=== PATIENT | male | born 1960 | race Caucasian/White ===

== ENCOUNTER 2020-05-01 11:43 | Inpatient (IN) ==
[2020-05-01 13:19] LABS: Basophils # (auto) 0.01 K/uL (0-0.2); Basophils % (auto) 0.2 %; Eosinophils # (auto) 0.03 K/uL (0-0.5); Eosinophils % (auto) 0.5 %; Hemoglobin 12.7 g/dL (14.0-18.0); Immature Granulocytes # (auto) 0.04 K/uL (0.00-0.02); Immature Granulocytes % (auto) 0.7 %; Lymphocytes % (auto) 12.4 %; Mean Corpuscular Hemoglobin 31.7 pg (25-34); Mean Corpuscular Hgb Conc 35.3 g/dL (32-36); Mean Corpuscular Volume 89.8 fL (80-100); Mean Platelet Volume 8.6 fL (7.4-10.4); Monocytes # (auto) 0.23 K/uL (0.11-0.59); Monocytes % (auto) 4.1 %; Neutrophils # (auto) 4.65 K/uL (1.4-6.5); Neutrophils % (auto) 82.1 %; Platelet Count 189 K/uL (130-400); RDW Coefficient of Variation 13.5 % (11.5-14.5); RDW Standard Deviation 43.7 fL (36.4-46.3); Red Blood Count 4.01 M/uL (4.7-6.1); White Blood Count 5.66 K/uL (4.8-10.8)
[2020-05-01 13:30] LABS: Partial Thromboplastin Ratio 0.8; Partial Thromboplastin Time 23.1 Seconds (21.0-31.0); Prothrombin Time 10.9 Seconds (9.0-12.0)
[2020-05-01 13:37] LABS: Albumin Level 3.4 gm/dl (3.4-5.0); Aspartate Aminotransferase 25 U/L (15-37); Blood Urea Nitrogen 21 mg/dl (7-18); Calcium 9.1 mg/dl (8.5-10.1); Carbon Dioxide 27 mmol/L (21-32); Chloride 104 mmol/L (98-107); Creatinine Clr Calc Pharmacy 80.7 ml/min; Est GFR (African American) 109.2; Est GFR (Non-African American) 94.3; Glucose 111 mg/dl (70-99); Magnesium 2.1 mg/dl (1.8-2.4); Potassium 3.4 mmol/L (3.5-5.1); Sodium 137 mmol/L (136-145)
[2020-05-01 13:42] LABS: Alanine Aminotransferase 25 U/L (12-78); Albumin Globulin Ratio 0.8 (0.9-2); Alkaline Phosphatase 82 U/L (45-117); Bilirubin,Total 0.6 mg/dl (0.2-1); Globulin 4.3 gm/dl (2.5-4.0); NT Pro B Type Natriuretic Pept 21 pg/ml (0-900); Total Protein 7.7 gm/dl (6.4-8.2); Troponin I < 0.015 ng/ml (0-0.045)
[2020-05-01] MEDS ORDERED: OPTIRAY 320 125ml IV ONE (13:58)
--- NOTE | 2020-05-01 14:26 | CT Scan Report ---
CHEST CTA for PULMONARY ARTERIES CT DOSE: 246.65 mGy.cm HISTORY: R posterior rib pain - s/p chemo/rad esoph CA TECHNIQUE: Multiaxial CT images of the chest were performed following the intravenous administration of contrast to evaluate the pulmonary arteries. Maximal intensity projection images were also obtaine d. A dose lowering technique was utilized adhering to the principles of ALARA. COMPARISON STUDY: PET scan 02/20/2020. FINDINGS: Normal caliber thoracic aorta with no evidence for dissection. Large pulmonary embolus seen within the distal left main pulmonary artery and extending into the left lower lobe pulmonary arteri es. Stable mild enlargement of the right ventricle. The main pulmonary artery is normal in diameter. A few prominent AP window lymph nodes, unchanged. Mild thickening of the esophagus. Limited views of the upper abdomen demonstrate normal liver and spleen. The adrenal glands unremarkable. No suspicious lytic or blastic osseous lesions. No pneumothorax. The central airways are patent. Groundglass and c onsolidative airspace opacities within the base of the left lower lobe. This favors a pulmonary infar ct. A pneumonia could also have a similar appearance. Patchy consolidative airspace opacities are als o seen within the base of the right lower lobe posteriorly. IMPRESSION: 1. Extensive left-sided pulmonary emboli. 2. Left lower lobe consolidative and groundglass airspace opacities. This favors a pulmonary infarct. There are also patchy airspace opacities within the base of the right lower lobe posteriorly. This c ould represent an additional pulmonary infarct, pneumonia, or atelectasis. 3. Diffuse esophageal wall thickening most pronounced within the distal esophagus. This is similar to the prior study and may represent post post radiation changes or neoplastic change. ACT 112: Negative or not required by law. Electronically signed by: Israel Anderson M.D. 05/01/2020 2:25 PM
[2020-05-01] MEDS ORDERED: LEVOFLOXACIN/D5W 750 MG/150 ML BAG IV STA (14:50)
[2020-05-01] MEDS ORDERED: HEPARIN SODIUM/DEXTROSE 25,000 UNITS/500 ML BAG IV SCH (15:00)
--- NOTE | 2020-05-01 15:04 | Emergency Department Note ---
History of Present Illness General Chief complaint: Back Injury/Pain Stated complaint: PAIN IN LOWER BACK Time Seen by Provider: 05/01/20 12:07 History of Present Illness Maximum Pain Intensity: 8 59-year-old male who presents to the emergency department with his with complaint of left back pain. The patient reports that the symptoms started this morning. Patient has a history of esophageal cancer, and just completed both chemotherapy and radiation therapy. The patient reports generalized chest discomfort, reflux and poor appetite. He admits that he does feel a little weaker than normal. He has not had any fever or chills. The patient did call his oncologist, Dr. Cortes, who recommended that he come to the emergency department to rule out blood clots. Patient denies any other cardiac history. He denies any pain radiating into the back. The pain is not reproducible with movement. It is slightly worsened with deep breathing. He denies any anterior chest pain. The patient rates his discomfort an 8 out of 10. Home Medications Home Medications Medication Instructions Recorded Confirmed Type pantoprazole 20 mg tablet,delayed 20 mg PO BID tab 02/29/20 05/01/20 History release CBD Gummy 1 cap PO HS PRN 03/24/20 05/01/20 History sucralfate [Carafate] 1 g PO BID 05/01/20 05/01/20 History Allergies Allergy/AdvReac Type Severity Reaction Status Date / Time No Known Allergies Allergy Verified 05/01/20 14:45 Past Med/Surg History Medical History Allergic rhinitis Calculus, kidney Chronic prostatitis Left lateral epicondylitis Reflux esophagitis Sinusitis, acute Vitamin D deficiency disease Surgical History History of meniscectomy of left knee S/P tonsillectomy and adenoidectomy Family History Mother , age 85 CHF also had colon cancer Cancer colon Father , age 78 no med hx No problems noted. Sister , age 61 lung cancer Cancer lung cancer Sister , age 76 scleroderma No problems noted. Sister No problems noted. Brother No problems noted. Son No problems noted. 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 cup of coffee occ tea) during the past year weight has: remained stable Dental Care, Regularly: Yes Physical Activity Frequency: 1-2 Times per Week Physical Activity Frequency Comment: mountain biking averages 12 miles Seatbelt Use: always Sunscreen Use: Yes Review of Systems 10 system review was performed and was negative except for pertinent positives a nd negatives as indicated in history of present illness Physical Exam Vital Signs Vital Signs - 24 hr 05/01/20 11:48 05/01/20 12:32 05/01/20 13:00 Temperature 37.0 C Temperature Source Oral Pulse Rate 133 H 124 H Pulse Rate from SpO2 Sensor Respiratory Rate 20 23 Blood Pressure 117/75 Blood Pressure Mean 89 Pulse Oximetry 97 96 Oxygen Delivery Method Room Air Room Air Room Air Sepsis Recent Fever Within 48 Hours No Sepsis New/Unexplained Change in Mental Status No Sepsis Action Taken by Nursing No Action Required 05/01/20 13:30 05/01/20 15:27 05/01/20 15:30 Temperature Temperature Source Pulse Rate 108 H 123 H 123 H Pulse Rate from SpO2 Sensor 124 H 126 H Respiratory Rate 24 20 19 Blood Pressure 107/70 108/75 Blood Pressure Mean 83 88 Pulse Oximetry 95 95 95 Oxygen Delivery Method Room Air Room Air Room Air Sepsis Recent Fever Within 48 Hours Sepsis New/Unexplained Change in Mental Status Sepsis Action Taken by Nursing CONSTITUTIONAL: Healthy and well nourished. Alert and oriented X 3. Patient does not appear in any acute distress on my exam. HEENT: Normocephalic, atraumatic. Pupils equal, round and reactive. Ears and nares are clear. No scleral icterus or conjunctival injection/pallor. Mucous membranes are dry. NECK: Full active range of motion without discomfort. No JVD or carotid bruits. LYMPHATICS: No cervical chain adenopathy. RESPIRATORY: Clear to auscultation bilaterally with no wheezing, crackles, rhonchi or stridor. CARDIOVASCULAR: Regular rate and rhythm with no murmurs, rubs or gallops. GASTROINTESTINAL: Bowel sounds present in all quadrants. Soft and nontender to palpation. MUSCULOSKELETAL: Patient has no tenderness to palpation through the central thoracolumbar spine. INTEGUMENTARY: No rash or other significant dermatologic conditions noted. HEMATOLOGIC: No ecchymosis or petechiae. PSYCHIATRIC: Positive affect. NEUROLOGIC: No focal neurologic deficits noted. Course Course Patient history and physical exam were performed. Nurse's notes were reviewed. Vital signs were reviewed. The patient is tachycardic at 133 bpm. He is otherwise afebrile and normotensive with an O2 saturation of 97% on room air. IV access was established, and labs were drawn and reviewed, showing a normal CBC and platelet count. Hemoglobin is 12.7; the reports that his lab values are actually improved. Coagulopathy studies are also normal. The patien t is mildly hypokalemic at 3.4. Creatinine is normal. Troponin is normal. ECG shows a sinus tachycardia of 116 bpm with an incomplete right bundle branch block. No previous ECGs are available for comparison through our system. An order was placed for cardiac monitoring upon presentation to the emergency department. CT angiography of the chest shows extensive left pulmonary emboli, as well as consolidations bilaterally, with concern for left pulmonary infarct and possibly pneumonia. Findings were discussed with Dr. Mohan, ED attending physician, who recommended IV heparin and Levaquin antibiotics. An order was placed for IV heparin and Levaquin. The case was also discussed with the patient and . They did have several questions that I was able to answer to their satisfaction. The case was discussed with the [facility] hospitalist group, who will evaluate the patient. They also requested that I contact Dr. Dumont, [facility] wick tender events traffic controller. I did discuss the case with him as well, and he reported that he would follow along with the patient, and also agrees with heparin and antibiotic coverage. Please see their dictations for further treatment and final disposition. Administered Medications Heparin Sodium/Dextrose (Heparin Sodium/Dextrose) 25,000 units in 500 mls @ 23 mls/hr IV .[id number] [facility]; Protocol Stop: 05/31/20 14:59 Last Admin: 05/01/20 15:18 Dose: 1,150 units/hr, 23 mls/hr Documented by: [id number] Cosigned by: [id number] Levofloxacin/Dextrose (Levaquin/D5w) 750 mg in 150 mls @ 100 mls/hr IV NOW STA Stop: 05/01/20 16:19 Last Admin: 05/01/20 15:22 Dose: 100 mls/hr Documented by: [id number] Discontinued Medications Heparin Sodium (Porcine) (Heparin Sod 5,000 Unit/0.5 Ml Vial) Confirm Administered Dose 5,000 units .ROUTE .STK-MED ONE Stop: 05/01/20 15:13 Last Admin: 05/01/20 15:18 Dose: 5,000 units Documented by: [id number] Cosigned by: [id number] Heparin Sodium/Dextrose (Heparin Iv Standard With Bolus) 1 ea IV NOW STA; Prot ocol Stop: 05/01/20 14:51 Last Admin: 05/01/20 15:18 Dose: 1 ea Documented by: [id number] Ioversol (Optiray 320 125ml) 120 ml IV ONCE ONE Stop: 05/01/20 13:59 Last Admin: 05/01/20 13:58 Dose: 120 ml Documented by: [id number] Potassium Chloride (Potassium Chloride 20 Meq Tabcr) 20 meq PO NOW STA Stop: 05/01/20 15:17 Last Admin: 05/01/20 15:35 Dose: 20 meq Documented by: [id number] Critical Care Time Critical Care Time: Yes Total Critical Care Time: 40 I have personally spent approximately 40 minutes of critical care time in the direct management of this patient. This includes bedside care, interpretation of diagnostic studies, and testing, discussion with consultants, patient, and family members, and other required patient management activities. This 40 minutes is in excess of all separately billable procedures. This is also felt to be a high risk diagnosis, requiring IV heparin for extensive left-sided pulmonary emboli and probable pulmonary infarct. Medical Decision Making Medical Records Attestation: I reviewed the patient's medical records. Home Medications Current Medication List: was personally reviewed by me Laboratory Data Attestation: I reviewed the patient's lab results. Result diagrams: 05/01/20 13:08 05/01/20 13:08 Lab Results 05/01/20 05/01/20 05/01/20 Range/Units 13:08 13:08 13:08 WBC 5.66 (4.8-10.8) K/uL RBC 4.01 L (4.7-6.1) M/uL Hgb 12.7 L (14.0-18.0) g/dL Hct 36.0 L (42-52) % MCV 89.8 (80-100) fL MCH 31.7 (25-34) pg MCHC 35.3 (32-36) g/dL RDW Std Deviation 43.7 (36.4-46.3) fL RDW Coeff of Travis 13.5 (11.5-14.5) % Plt Count 189 (130-400) K/uL MPV 8.6 (7.4-10.4) fL Immature Gran % (Auto) 0.7 % Neut % (Auto) 82.1 % Lymph % (Auto) 12.4 % Moffat % (Auto) 4.1 % Eos % (Auto) 0.5 % Baso % (Auto) 0.2 % Neut # (Auto) 4.65 (1.4-6.5) K/uL Lymph # (Auto) 0.70 L (1.2-3.4) K/uL Moffat # (Auto) 0.23 (0.11-0.59) K/uL Eos # (Auto) 0.03 (0-0.5) K/uL Baso # (Auto) 0.01 (0-0.2) K/uL Immature Gran # (Auto) 0.04 H (0.00-0.02) K/uL PT 10.9 (9.0-12.0) Seconds INR 1.0 (0.9-1.1) APTT 23.1 (21.0-31.0) Seconds PTT Ratio 0.8 Sodium 137 (136-145) mmol/L Potassium 3.4 L (3.5-5.1) mmol/L Chloride 104 (98-107) mmol/L Carbon Dioxide 27 (21-32) mmol/L Anion Gap 6.0 (3-11) BUN 21 H (7-18) mg/dl Creatinine 0.89 (0.6-1.4) mg/dl Est Cr Clr Drug Dosing 80.7 ml/min Est GFR ( Amer) 109.2 Est GFR (Non-Af Amer) 94.3 BUN/Creatinine Ratio 23.0 H (10-20) Glucose 111 H (70-99) mg/dl Calcium 9.1 (8.5-10.1) mg/dl Magnesium 2.1 (1.8-2.4) mg/dl Total Bilirubin 0.6 (0.2-1) mg/dl AST 25 (15-37) U/L ALT 25 (12-78) U/L Alkaline Phosphatase 82 (45-117) U/L Troponin I < 0.015 (0-0.045) ng/ml NT-Pro-B Natriuret Pep 21 (0-900) pg/ml Total Protein 7.7 (6.4-8.2) gm/dl Albumin 3.4 (3.4-5.0) gm/dl Globulin 4.3 H (2.5-4.0) gm/dl Albumin/Globulin Ratio 0.8 L (0.9-2) COVID-19 Eval Order 05/01/20 Range/Units 15:30 WBC (4.8-10.8) K/uL RBC (4.7-6.1) M/uL Hgb (14.0-18.0) g/dL Hct (42-52) % MCV (80-100) fL MCH (25-34) pg MCHC (32-36) g/dL RDW Std Deviation (36.4-46.3) fL RDW Coeff of Travis (11.5-14.5) % Plt Count (130-400) K/uL MPV (7.4-10.4) fL Immature Gran % (Auto) % Neut % (Auto) % Lymph % (Auto) % Moffat % (Auto) % Eos % (Auto) % Baso % (Auto) % Neut # (Auto) (1.4-6.5) K/uL Lymph # (Auto) (1.2-3.4) K/uL Moffat # (Auto) (0.11-0.59) K/uL Eos # (Auto) (0-0.5) K/uL Baso # (Auto) (0-0.2) K/uL Immature Gran # (Auto) (0.00-0.02) K/uL PT (9.0-12.0) Seconds INR (0.9-1.1) APTT (21.0-31.0) Seconds PTT Ratio Sodium (136-145) mmol/L Potassium (3.5-5.1) mmol/L Chloride (98-107) mmol/L Carbon Dioxide (21-32) mmol/L Anion Gap (3-11) BUN (7-18) mg/dl Creatinine (0.6-1.4) mg/dl Est Cr Clr Drug Dosing ml/min Est GFR ( Amer) Est GFR (Non-Af Amer) BUN/Creatinine Ratio (10-20) Glucose (70-99) mg/dl Calcium (8.5-10.1) mg/dl Magnesium (1.8-2.4) mg/dl Total Bilirubin (0.2-1) mg/dl AST (15-37) U/L ALT (12-78) U/L Alkaline Phosphatase (45-117) U/L Troponin I (0-0.045) ng/ml NT-Pro-B Natriuret Pep (0-900) pg/ml Total Protein (6.4-8.2) gm/dl Albumin (3.4-5.0) gm/dl Globulin (2.5-4.0) gm/dl Albumin/Globulin Ratio (0.9-2) COVID-19 Eval Order Covid19 Done at [facility] Imaging Data Attestation: I personally reviewed and interpreted this imaging study as follows: My Impression: Chest CT angiography shows multiple left pulmonary emboli, as well as consolidations bilaterally, with possibility of left pulmonary infarct. Radiologist report was also reviewed. Radiologist's Impression: CHEST CTA for PULMONARY ARTERIES CT DOSE: 246.65 mGy.cm HISTORY: R posterior rib pain - s/p chemo/rad esoph CA TECHNIQUE: Multiaxial CT images of the chest were performed following the intravenous administration of contrast to evaluate the pulmonary arteries. Maximal intensity projection images were also obtained. A dose lowering technique was utilized adhering to the principles of ALARA. COMPARISON STUDY: PET scan 02/20/2020. FINDINGS: Normal caliber thoracic aorta with no evidence for dissection. Large pulmonary embolus seen within the distal left main pulmonary artery and extending into the left lower lobe pulmonary arteries. Stable mild enlargement of the right ventricle. The main pulmonary artery is normal in diameter. A few prominent AP window lymph nodes, unchanged. Mild thickening of the esophagus. Limited views of the upper abdomen demonstrate normal liver and spleen. The adrenal glands unremarkable. No suspicious lytic or blastic osseous lesions. No pneumothorax. The central airways are patent. Groundglass and consolidative airspace opacities within the base of the left lower lobe. This favors a pulmonary infarct. A pneumonia could also have a similar appearance. Patchy consolidative airspace opacities are also seen within the base of the right lower lobe posteriorly. IMPRESSION: 1. Extensive left-sided pulmonary emboli. 2. Left lower lobe consolidative and groundglass airspace opacities. This favors a pulmonary infarct. There are also patchy airspace opacities within the base of the right lower lobe posteriorly. This could represent an additional pulmonary infarct, pneumonia, or atelectasis. 3. Diffuse esophageal wall thickening most pronounced within the distal esophagus. This is similar to the prior study and may represent post post radiation changes or neoplastic change. ECG Data Attestation: I personally reviewed and interpreted this ECG as follows: Indication: + back/shoulder pain, + tachycardia and + weakness Rate (beats per minute): 116 Rhythm: + sinus tachycardia ECG Intervals/blocks: + Right Bundle branch block (Incomplete) and + Normal QRS ECG [place]: + Normal ECG ST segments: + Normal ST segments Comparison ECG Date: no prior available Prescription Drug Monitoring [place] Drug Monitoring Program reviewed and no issues identified Blood Pressure Blood Pressure Findings: Normal blood pressure MDM Narrative Cardiac monitoring: An order was placed for continuous cardiac monitoring. The monitor shows a rate of 116 bpm with a sinus tachycardic rhythm and incomplete right bundle branch block. hospital monitor history was reviewed throughout the evaluation, and no dysrhythmias were noted. Patient remained tachycardic thr oughout his emergency department evaluation. Patient presents to the emergency department with complaint of left posterior rib pain. She does have a history of esophageal cancer, having just completed a round of both chemotherapy and radiation therapy. CT chest angiography does show evidence for extensive left-sided pulmonary emboli, and concern for possible pulmonary infarct and consolidative changes that could also be pneumonia as well. At the current time, the patient is afebrile without any significant leukocytosis or thrombocytopenia. ECG and troponin are normal, therefore I do not suspect myocardial infarction. Coagulation studies at this point are normal. Patient denies any exacerbating symptoms with movement, therefore musculoskeletal etiology was considered, but felt less likely. Patient does not have any laboratory studies to suggest pancreatitis, cholecystitis or hepatitis. Impression & Plan Pulmonary embolism on left, Esophageal cancer, Status post chemotherapy, Status post radiation therapy Discharge Plan Visit Data Chief Complaint: Back Injury/Pain Stated Complaint: PAIN IN LOWER BACK ED Provider: Bello Mohan ED Midlevel Provider: Paras Pope Discharge Problem: Pulmonary embolism on left, Esophageal cancer, Status post chemotherapy, Status post radiation therapy Forms Stand Alone Forms: [employer] Prescriptions Prescriptions: No Action pantoprazole [Protonix] 20 mg tablet,delayed release (DR/EC) 20 mg PO BID RF: 0 CBD Gummy 1 cap PO HS PRN (Reason: sleep) RF: 0 sucralfate [Carafate] 1 gram Tablet 1 g PO BID RF: 0 Discharge Problem: Esophageal cancer Qualifiers: Malignant neoplasm of esophagus location: lower third Qualified Code(s): C15.5 - Malignant neoplasm of lower third of esophagus
[2020-05-01] MEDS ORDERED: HEPARIN SOD 5,000 UNIT/0.5 ML VIAL ONE (15:12)
[2020-05-01] MEDS ORDERED: POTASSIUM CHLORIDE 20 MEQ TABCR PO STA (15:16)
--- NOTE | 2020-05-01 16:09 | History & Physical Report ---
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 Referred to ED by Dr. Almonte due to concern for PE. Pt hemodynamically stable, but tachycardiac. CTA CHEST: 1. Extensive left-sided pulmonary emboli. Left lower lobe consolidative and ground glass airspace opacities. This favors a pulmonary in farct. There are also patchy airspace opacities within the base of the right lower lobe posteriorly. This could represent an additional pulmonary infarct, pneumonia, or atelectasis. Diffuse esophageal wall thickening most pronounced within the distal esophagus. This is similar to the prior study and may represent post post radiation changes or neoplastic change. In ED he was started on Heparin bolus and gtt. admit to PCU consult pulmonology due to concern for pulmonary infarct continue IV Heparin obtain echocardiogram Continue IV antibiotics empirically IV vanco/zosyn for broad spectrum coverage given immunocompromised state and concern for infectious process vs. infarct on imaging IV morphine 4mg for severe pain, oral oxycodone moderate pain (3) Esophageal cancer: s/p neoadjuvant chemo and XRT therapy with weekly carboplatin and taxol follows Dr. Almonte (4) Radiation esophagitis: continue PPI, carafate (5) Hypokalemia: replace with 20meq KCL repeat bmp in a.m. (6) DVT prophylaxis: IV Heparin Disposition: admit to PCU Follow up: PCP Dr. Srikanth Jorgensen upon discharge Pt was seen and examined in collaboration with Dr. Dean, please see addendum History of Present Illness Chief Complaint: Chest pain with inspiration x 1 day. 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 Chemotherapy comprised of weekly Taxol and carboplatin. He follows with Dr. Almonte. 2/2 to XRT he has been experiencing significant heart burn for which he has been taking carafate, PPI and zytrec. He presents to ED today at recommendation of oncologist due to abrupt onset of chest pain that is worse with inspiration and concern for embolism. is at bedside. Pain started last evening on left side of chest with radiation to back. Pain is worse with inspiration and speaking. Pain is worse with deep and shallow inspiration. Pain rated 8/10, improved with warm compress, and never experienced in the past. states he has tolerated chemo very well and has had a slight decreased appetite but otherwise no complications till now. Patient denies any recent fever, chills, sweats, lightheadedness, dizziness, syncope, shortness of breath at rest, JARA, cough, hemoptysis, nausea, vomiting, abdominal pain. He feels his heartburn it has slightly improved since starting Carafate but was very severe for the past week. Up until the cancer diagnosis he has been very healthy is and is an avid cycler. In ED pt remained hemodynamically stable and did not require oxygen supplementation. Lab work notable for H&H 12.7 and 36.0, platelet 189, K3.4, BUN 21, creatinine 0.89, glucose 111. Chest CTA Extensive left-sided pulmonary emboli. Left lower lobe consolidative and ground glass airspace opacities. This favors a pulmonary infarct. There are also patchy airspace opacities within the base of the right lower lobe posteriorly. This could represent an additional pulmonary infarct, pneumonia, or atelectasis. Diffuse esophageal wall thickening most pronounced within the distal esophagus. This is similar to the prior study and may represent post post radiation changes or neoplastic change. He was started on IV heparin and received 750mg of IV levaquin due to concern for PNA. Allergies Allergy/AdvReac Type Severity Reaction Status Date / Time No Known Allergies Allergy Verified 05/01/20 14:45 Home Medications Home Medications Medication Instructions Recorded Confirmed Type pantoprazole 20 mg tablet,delayed 20 mg PO BID tab 02/29/20 05/01/20 History release CBD Gummy 1 cap PO HS PRN 03/24/20 05/01/20 History sucralfate [Carafate] 1 g PO BID 05/01/20 05/01/20 History Past Med/Surg History Medical History (Updated 05/01/20 @ 16:31 by Che Gonzales PA-C) Allergic rhinitis Calculus, kidney Chronic prostatitis Left lateral epicondylitis Reflux esophagitis Sinusitis, acute Vitamin D deficiency disease Surgical History History of meniscectomy of left knee S/P tonsillectomy and adenoidectomy Family History Mother , age 85 CHF also had colon cancer Cancer colon Father , age 78 no med hx No problems noted. Sister , age 61 lung cancer Cancer lung cancer Sister , age 76 scleroderma No problems noted. Sister No problems noted. Brother No problems noted. Son No problems noted. Social History Smoking Status: Never smoker Second Hand Exposure: No; Do You Dip or Chew Tobacco: No; Hx Alcohol Use: No Hx Substance Use: No Preferred Language: Finnish Communication Ability: Effective Visual Impairment: No Limitations Hearing Ability: Normal Beliefs That Will Affect Care: None marital status: Current Living Situation: Spouse current occupational status: employed current occupation: self employed [employer] Other Information That Helps Us Care for You: No Feels Safe at Home: Yes Safety Concerns: Feels Safe At This Time Childhood Exposure to Second-Hand Smoke: Yes caffeine: Yes (occ. cup of coffee occ tea) during the past year weight has: remained stable Dental Care, Regularly: Yes Physical Activity Frequency: 1-2 Times per Week Physical Activity Frequency Comment: mountain biking averages 12 miles Seatbelt Use: always Sunscreen Use: Yes Review of Systems Review of Systems: All systems reviewed & are unremarkable except as noted in HPI & below Physical Exam Physical Exam: Constitutional: WD/WN, thin, M, vitals as above, NAD, sitting up in bed, pleasant, conversing easily Head: Normocephalic, Atraumatic Eyes: PERRL, conjunctivae normal, anicteric sclerae ENMT: external ear and nose normal, oropharynx normal Neck: trachea midline, no thyromegaly normal visual inspection Respiratory: increased inspiratory effort, shallow inspirations due to pain, lungs clear to auscultation, no wheeze, rales, rhonchi. Normal insp/exp effort, no accessory muscle use Cardiovascular: RRR, no murmur, no edema Vessels: no JVD or carotid bruit Chest: normal inspection of chest Abdomen: normal bowel sounds, soft, nontender, no hepatosplenomegaly Musculoskeletal: no cyanosis or clubbing, extremities motor strength 5/5, prominent L AC separation Skin: no rashes, warm and dry normal turgor Neurologic: PERRL, EOMI, accommodation nl, no face palsy, no dysarthria CN's II-XI intact bilaterally and moves all extremities Psychiatric: A+Ox3, euthymic affect Lymphatic: no cervical or axillary lymphadenopathy : deferred Results & Data Results & Data ([facility]) Vital Signs (Past 12 Hours) Vital Signs Temp Pulse Resp BP Pulse Ox 05/01/20 15:30 123 H 19 108/75 95 05/01/20 15:27 123 H 20 107/70 95 05/01/20 13:30 108 H 24 95 05/01/20 13:00 124 H 23 96 05/01/20 11:48 37.0 C 133 H 20 117/75 97 Laboratory Results Short CBC 05/01/20 Range/Units 13:08 WBC 5.66 (4.8-10.8) K/uL Hgb 12.7 L (14.0-18.0) g/dL Hct 36.0 L (42-52) % Plt Count 189 (130-400) K/uL BMP 05/01/20 13:08 Sodium 137 Potassium 3.4 L Chloride 104 Carbon Dioxide 27 BUN 21 H Creatinine 0.89 Glucose 111 H Calcium 9.1 Cardiac Enzymes 05/01/20 Range/Units 13:08 Troponin I < 0.015 (0-0.045) ng/ml Liver Function 05/01/20 Range/Units 13:08 Total Bilirubin 0.6 (0.2-1) mg/dl AST 25 (15-37) U/L ALT 25 (12-78) U/L Alkaline Phosphatase 82 (45-117) U/L Albumin 3.4 (3.4-5.0) gm/dl Diagnostic Findings Chest CTA: CHEST CTA for PULMONARY ARTERIES CT DOSE: 246.65 mGy.cm HISTORY: R posterior rib pain - s/p chemo/rad esoph CA TECHNIQUE: Multiaxial CT images of the chest were performed following the intravenous administration of contrast to evaluate the pulmonary arteries. Maximal intensity projection images were also obtained. A dose lowering technique was utilized adhering to the principles of ALARA. COMPARISON STUDY: PET scan 02/20/2020. FINDINGS: Normal caliber thoracic aorta with no evidence for dissection. Large pulmonary embolus seen within the distal left main pulmonary artery and extending into the left lower lobe pulmonary arteries. Stable mild enlargement of the right ventricle. The main pulmonary artery is normal in diameter. A few prominent AP window lymph nodes, unchanged. Mild thickening of the esophagus. Limited views of the upper abdomen demonstrate normal liver and spleen. The adrenal glands unremarkable. No suspicious lytic or blastic osseous lesions. No pneumothorax. The central airways are patent. Groundglass and consolidative airspace opacities within the base of the left lower lobe. This favors a pulmonary infarct. A pneumonia could also have a similar appearance. Patchy consolidative airspace opacities are also seen within the base of the right lower lobe posteriorly. IMPRESSION: 1. Extensive left-sided pulmonary emboli. 2. Left lower lobe consolidative and groundglass airspace opacities. This favors a pulmonary infarct. There are also patchy airspace opacities within the base of the right lower lobe posteriorly. This could represent an additional pulmonary infarct, pneumonia, or atelectasis. 3. Diffuse esophageal wall thickening most pronounced within the distal esophagus. This is similar to the prior study and may represent post post radiation changes or neoplastic change. Medications Administered Heparin Sodium/Dextrose (Heparin Sodium/Dextrose) 25,000 units in 500 mls @ 23 mls/hr IV .[id number] [facility]; Protocol Stop: 05/31/20 14:59 Last Admin: 05/01/20 15:18 Dose: 1,150 units/hr, 23 mls/hr Documented by: [id number] Cosigned by: [id number] Discontinued Medications Heparin Sodium (Porcine) (Heparin Sod 5,000 Unit/0.5 Ml Vial) Confirm Administered Dose 5,000 units .ROUTE .STK-MED ONE Stop: 05/01/20 15:13 Last Admin: 05/01/20 15:18 Dose: 5,000 units Documented by: [id number] Cosigned by: [id number] Heparin Sodium/Dextrose (Heparin Iv Standard With Bolus) 1 ea IV NOW STA; Protocol Stop: 05/01/20 14:51 Last Admin: 05/01/20 15:18 Dose: 1 ea Documented by: [id number] Levofloxacin/Dextrose (Levaquin/D5w) 750 mg in 150 mls @ 100 mls/hr IV NOW STA Stop: 05/01/20 16:19 Last Admin: 05/01/20 15:22 Dose: 100 mls/hr Documented by: [id number] Ioversol (Optiray 320 125ml) 120 ml IV ONCE ONE Stop: 05/01/20 13:59 Last Admin: 05/01/20 13:58 Dose: 120 ml Documented by: [id number] Potassium Chloride (Potassium Chloride 20 Meq Tabcr) 20 meq PO NOW STA Stop: 05/01/20 15:17 Last Admin: 05/01/20 15:35 Dose: 20 meq Documented by: [id number] ECG Rate (beats per minute): 116 Rhythm: sinus tachycardia Additional Comments: incomplete RBBB Code Status & VTE Plan Code Status Full Code VTE Prophylaxis Plan VTE Prophylaxis will be ordered: No Supervising Physician Co-Signing Physician Notes Patient seen and examined by me, care coordinated with Che Davis PA-C, please refer to her note above for further detail. Pt is a 59 y/o male recently diagnosed with invasive adenocarcinoma of the distal esophagus status post completion of combined neoadjuvant radiation and chemotherapy, radiation esophagitis who presents to ED due to abrupt onset left sided back/chest pain worsened with inspiration x 1 day. Referred to ED by Dr. Almonte due to concern for PE. CTA chest showed extensive left-sided pulmonary emboli. Left lower lobe consolidative and ground glass airspace opacities. This favors a pulmonary infarct. There are also patchy airspace opacities within the base of the right lower lobe posteriorly. This could represent an additional pulmonary infarct, pneumonia, or atelectasis. Diffuse esophageal wall thickening most pronounced within the distal esophagus. This is similar to the prior study and may represent post post radiation changes or neoplastic change. Patient is currently sitting up in bed, in no acute distress. Patient is at bedside. Patient is alert and oriented and answering questions appropriately. Overall clear to auscultation bilaterally without only very mild rhonchi more on the left. No crackles noted. He is tachycardic, with heart rates in 120s. He has tenderness to palpation at left upper back however he says the pain is more internal, especially when he takes a breath (pleuritic). Abdomen is soft, nontender, nondistended, positive bowel sounds. He moves all 4 extremities spontaneously to difficulty. There is no lower extremity edema, there is no tenderness to palpation of calves. Skin is warm, dry, well- perfused, without any rashes or lesions. In ED pt was started on Heparin bolus and gtt. He was also provided with Levaquin. Consult pulmonology due to concern for pulmonary infarct. Obtain echocardiogram. Continue IV antibiotics empirically IV vanco/zosyn for broad spectrum coverage given immunocompromised state and concern for infectious process vs. infarct on imaging. Obtain procalcitonin. Sharlene Dean MD (1) Esophageal cancer Malignant neoplasm of esophagus location: lower third Qualified Code(s): C15.5 - Malignant neoplasm of lower third of esophagus
[2020-05-01] MEDS ORDERED: MoRPHine SULFATE 4 MG/ML 1 ML CARP\\VIAL IV STA (17:17)
[2020-05-01] MEDS ORDERED: MAGNESIUM HYDROXIDE SUSP 30 ML UDC PO PRN (18:48)
[2020-05-01] MEDS ORDERED: ONDANSETRON INJ 2 MG/ML 2 ML VIAL IV PRN (18:48)
[2020-05-01] MEDS ORDERED: ACETAMINOPHEN 325 MG TAB PO PRN (18:48)
[2020-05-01] MEDS ORDERED: MoRPHine SULFATE 4 MG/ML 1 ML CARP\\VIAL IV PRN (18:48)
[2020-05-01] MEDS ORDERED: ALUMINUM/MAGNESIUM SUSP 30 ML UDC PO PRN (18:48)
[2020-05-01] MEDS ORDERED: POLYETHYLENE (MIRALAX) 17 GM PACK PO PRN (18:48)
[2020-05-01] MEDS ORDERED: PIPERACILL/TAZOBAC CONSULT ACTIVE PRN (18:48)
[2020-05-01] MEDS ORDERED: VANCOMYCIN CONSULT ACTIVE PRN (18:48)
[2020-05-01] MEDS: PANTOprazole 40 MG TAB PO SCH (19:23)
[2020-05-01] MEDS ORDERED: PIPERACILLIN/TAZOBACTAM 3.375 GM in DEXTROSE 5% 100 ML IV ONE (19:30)
[2020-05-01] MEDS: SUCRALFATE 1 GM TAB PO SCH (19:30)
[2020-05-01] MEDS ORDERED: VANCOMYCIN HCL 1,500 MG in SODIUM CHLORIDE 0.9% 500 ML IV ONE (20:00)
[2020-05-01 21:50] LABS: Partial Thromboplastin Ratio 3.7
[2020-05-01] MEDS: PIPERACILLIN/TAZOBACTAM 3.375 GM in DEXTROSE 5% 100 ML IV SCH (23:29)
[2020-05-01] MEDS: OXYCODONE HCL IR 5 MG TAB (IMMEDIATE RELEASE) PO PRN (23:32)
[2020-05-02 00:09] LABS: Appearance Urine Clear (Clear); Bacteria Urine Automated Negative (Negative); Bilirubin Urine Negative (Negative); Blood Urine Negative (Negative); Color Urine Dark Yellow; Glucose Urine UA Negative (Negative); Ketones Urine 3+ (Negative); Leukocyte Esterase Urine Negative (Negative); Nitrite Urine Negative (Negative); Protein Urine Trace (Negative); RBC Urine Automated 0-4 /hpf (0-4); Specific Gravity Urine > 1.045 (1.000-1.030); Urobilinogen Urine Negative (Negative)
[2020-05-02] MEDS: OXYCODONE HCL IR 5 MG TAB (IMMEDIATE RELEASE) PO PRN (03:52)
--- NOTE | 2020-05-02 05:43 | Electrocardiogram Report ---
Test Reason : Blood Pressure : / mmHG Vent. Rate : 116 BPM Atrial Rate : 116 BPM P-R Int : 182 ms QRS Dur : 106 ms QT Int : 324 ms P-R-T Axes : 042 005 035 degrees QTc Int : 450 ms Sinus tachycardia Incomplete right bundle branch block Possible Inferior infarct , age undetermined Abnormal ECG No previous ECGs available Confirmed by Max Armstrong ([id number]) on 05/02/2020 5:42:54 AM Referred By: Pietro Almonte Confirmed By:Max Armstrong
[2020-05-02 06:28] LABS: Hematocrit (blood only) 30.1 % (42-52); Hemoglobin 10.8 g/dL (14.0-18.0); Mean Corpuscular Hgb Conc 35.9 g/dL (32-36); Mean Corpuscular Volume 89.3 fL (80-100); Mean Platelet Volume 8.4 fL (7.4-10.4); Platelet Count 170 K/uL (130-400); RDW Coefficient of Variation 13.7 % (11.5-14.5); RDW Standard Deviation 44.1 fL (36.4-46.3); Red Blood Count 3.37 M/uL (4.7-6.1); White Blood Count 5.57 K/uL (4.8-10.8)
[2020-05-02 06:47] LABS: BUN Creatinine Ratio 21.1 (10-20); Calcium 8.7 mg/dl (8.5-10.1); Creatinine Clr Calc Pharmacy 96.1 ml/min; Est GFR (African American) 117.2; Est GFR (Non-African American) 101.1; Potassium 3.6 mmol/L (3.5-5.1)
[2020-05-02 06:58] LABS: Partial Thromboplastin Ratio 3.3
[2020-05-02 07:01] LABS: Partial Thromboplastin Time 91.4 Seconds (21.0-31.0)
[2020-05-02] MEDS ORDERED: VANCOMYCIN HCL 1,250 MG in SODIUM CHLORIDE 0.9% 250 ML IV SCH (08:00)
[2020-05-02] MEDS: PANTOprazole 40 MG TAB PO SCH (08:46)
[2020-05-02] MEDS: PIPERACILLIN/TAZOBACTAM 3.375 GM in DEXTROSE 5% 100 ML IV SCH (08:52)
[2020-05-02] MEDS: SUCRALFATE 1 GM TAB PO SCH (08:53)
--- NOTE | 2020-05-02 11:54 | Hospitalist Progress Note ---
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 Referred to ED by Dr. Almonte due to concern for PE." as per admitting hospitalist team -admission CTA CHEST: 1. Extensive left-sided pulmonary emboli. 2. Left lower lobe consolidative and groundglass airspace opacities. This favors a pulmonary infarct. There are also patchy airspace opacities within the base of the right lower lobe posteriorly. This could represent an additional pulmonary infarct, pneumonia, or atelectasis. 3. Diffuse esophageal wall thickening most pronounced within the distal esophagus. This is similar to the prior study and may represent post post radiation changes or neoplastic change. -he was then started om IV heparin and broad spectrum antibiotics of IV Vancomycin and IV Zosyn 05/02/[address] Fidel Boss whether any changes to anticoagulation because of possible pulmonary infarcts on imaging, he reports that pulmonary infarcts go away over time and can continue anticoagulation. Patient seen and examined at the bedside. He denies fevers at home. He was given Vancomycin and Zosyn by admitting hospitalist team but there does not appear to be a role for Vancomycin as MRSA swab negative. His procalcitonin negative and there the Zosyn can also be stopped as well. Patient breathing on room air. He reports that when he takes deep breaths he does feel some discomfort from left lower lung ellison. Patient will be given incentive spirometer to prevent atelectasis and prn pain medications. Patient currently on IV heparin. He was explained different anticoagulation options and understands that hospitalist is trying to reach his oncologist to determine which discharge systemic anticoagulation will be appropriate since patient also following [facility] in [place] for planned tumor removal (3) Esophageal cancer: -s/p neoadjuvant chemo and XRT therapy with weekly carboplatin and taxol -his outpatient oncologist Dr. Almonte - patient also following [facility] in [place] for planned tumor removal (4) Radiation esophagitis: -on PPI, carafate (5) Hypokalemia: -mildly low serum potassium of 3.4 on admission and was given potassium supplements -serum potassium 3.6 on 05/02/2020 and serum potassium at goal (6) DVT prophylaxis: -on IV Heparin Admission and Anticipated Discharge Date Admission Date: May 01, 2020 Subjective Discussed with Pulmonary Dr. Fidel Boss whether any changes to anticoagulation because of possible pulmonary infarcts on imaging, he reports that pulmonary infarcts go away over time and can continue anticoagulation. Patient seen and examined at the bedside. He denies fevers at home. He was given Vancomycin and Zosyn by admitting hospitalist team but there does not appear to be a role for Vancomycin as MRSA swab negative. His procalcitonin negative and there the Zosyn can also be stopped as well. Patient breathing on room air. He reports that when he takes deep breaths he does feel some discomfort from left lower lung ellison. Patient will be given incentive spirometer to prevent atelectasis and prn pain medications. Patient currently on IV heparin. He was explained different anticoagulation options and understands that hospitalist is trying to reach his oncologist to determine which discharge systemic anticoagulation will be appropriate since patient also following [facility] in [place] for planned tumor removal Review of Systems Review of Systems: All systems reviewed & are unremarkable except as noted in Subjective Physical Exam Eyes: PERRL, conjunctivae normal, anicteric sclerae EOM intact bilaterally ENMT: external ear and nose normal, oropharynx normal Neck: trachea midline, no thyromegaly normal visual inspection Respiratory: normal respiratory effort Auscultation: lungs clear to auscultation bilaterally Cardiovascular: Rate/Rhythm: regular rate and regular rhythm Gastrointestinal (Abdomen): normal bowel sounds, soft, nontender, no hepatosplenomegaly Musculoskeletal: Head/Neck/Chest: normocephalic and head atraumatic Neurologic: PERRL, EOMI, accommodation nl, no face palsy, no dysarthria CN's II-XI intact bilaterally Psychiatric: A+Ox3, euthymic affect Results & Data Results & Data ([facility] [place]) Vital Signs (Past 12 Hours) Vital Signs Temp Pulse Pulse Resp BP Pulse Ox 05/02/20 11:09 36.6 C 89 19 95/61 L 94 05/02/20 08:16 36.7 C 102 H 19 98/64 L 93 05/02/20 08:00 96 H 05/02/20 03:03 36.8 C 93 H 18 107/72 94 (1) Esophageal cancer Malignant neoplasm of esophagus location: lower third Qualified Code(s): C15.5 - Malignant neoplasm of lower third of esophagus
[2020-05-02 14:50] LABS: Partial Thromboplastin Time 56.4 Seconds (21.0-31.0)
--- NOTE | 2020-05-02 14:52 | Electrocardiogram Report ---
Test Reason : Blood Pressure : / mmHG Vent. Rate : 096 BPM Atrial Rate : 096 BPM P-R Int : 156 ms QRS Dur : 108 ms QT Int : 360 ms P-R-T Axes : 004 -10 000 degrees QTc Int : 454 ms Normal sinus rhythm Incomplete right bundle branch block Inferior infarct (cited on or before 01-MAY-2020) Abnormal ECG When compared with ECG of 01-MAY-2020 12:40, Inverted T waves have replaced nonspecific T wave abnormality in Inferior leads Confirmed by Manpreet Arellano ([id number]) on 05/02/2020 2:52:22 PM Referred By: Pietro Almonte Confirmed By:Manpreet Arellano
--- NOTE | 2020-05-02 15:03 | Discharge Summary ---
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 Chemotherapy comprised of weekly Taxol and carboplatin. He follows with Dr. Almonte. 2/2 to XRT he has been experiencing significant heart burn for which he has been taking carafate, PPI and zytrec. He presents to ED today at recommendation of oncologist due to abrupt onset of chest pain that is worse with inspiration and concern for embolism. is at bedside. Pain started last evening on left side of chest with radiation to back. Pain is worse with inspiration and speaking. Pain is worse with deep and shallow inspiration. Pain rated 8/10, improved with warm compress, and never experienced in the past. states he has tolerated chemo very well and has had a slight decreased appetite but otherwise no complications till now. Patient denies any recent fever, chills, sweats, lightheadedness, dizziness, syncope, shortness of breath at rest, JARA, cough, hemoptysis, nausea, vomiting, abdominal pain. He feels his heartburn it has slightly improved since starting Carafate but was very severe for the past week. Up until the cancer diagnosis he has been very healthy is and is an avid cycler. In ED pt remained hemodynamically stable and did not require oxygen supplementat ion. Lab work notable for H&H 12.7 and 36.0, platelet 189, K3.4, BUN 21, creatinine 0.89, glucose 111. Chest CTA Extensive left-sided pulmonary emboli. Left lower lobe consolidative and ground glass airspace opacities. This favors a pulmonary infarct. There are also patchy airspace opacities within the base of the right lower lobe posteriorly. This could represent an additional pulmonary infarct, pneumonia, or atelectasis. Diffuse esophageal wall thickening most pronounced within the distal esophagus. This is similar to the prior study and may represent post post radiation changes or neoplastic change. He was started on IV heparin and received 750mg of IV levaquin due to concern for PNA. Principal Diagnosis Pulmonary embolism on left Pulmonary infarct Esophageal Cancer (adenocarcinoma involving the lower 3rd of esophagus) as per notes of oncologist Dr. Almonte History of Radiation esophagitis Hypokalemia (mild, on admission) Discharge Exam Eyes PERRL, conjunctivae normal, anicteric sclerae EOM intact bilaterally ENMT external ear and nose normal, oropharynx normal Neck trachea midline, no thyromegaly normal visual inspection Respiratory normal respiratory effort Auscultation: lungs clear to auscultation bilaterally Cardiovascular Rate/Rhythm: regular rate and regular rhythm Gastrointestinal (Abdomen) normal bowel sounds, soft, nontender, no hepatosplenomegaly Musculoskeletal Head/Neck/Chest: normocephalic and head atraumatic Neurologic PERRL, EOMI, accommodation nl, no face palsy, no dysarthria CN's II-XI intact bilaterally Psychiatric A+Ox3, euthymic affect Discharge Data Allergies Allergy/AdvReac Type Severity Reaction Status Date / Time No Known Allergies Allergy Verified 05/01/20 14:45 Consultations 05/01/20 15:05 ED Decision to Admit Stat 05/02/20 14:12 Burn CD for patient Stat Ordered Studies 05/01/20 12:32 CT angio chest PE protocol Stat Hospital Course (1) Pulmonary embolism on left: (2) Pulmonary infarct: -"This is a 59-year-old male who has significant past medical history of 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 Referred to ED by Dr. Almonte due to arnold rn for PE." as per admitting hospitalist team -admission CTA CHEST: 1. Extensive left-sided pulmonary emboli. 2. Left lower lobe consolidative and groundglass airspace opacities. This favors a pulmonary infarct. There are also patchy airspace opacities within the base of the right lower lobe posteriorly. This could represent an additional pulmonary infarct, pneumonia, or atelectasis. 3. Diffuse esophageal wall thickening most pronounced within the distal esophagus. This is similar to the prior study and may represent post post radiation changes or neoplastic change. -he was then started om IV heparin, a dose of IV Levaquin and then broad spectrum antibiotics of IV Vancomycin and IV Zosyn 05/02/[address] Fidel Boss whether any changes to anticoagulation because of possible pulmonary infarcts on imaging, he reports that pulmonary infarcts go away over time and can continue anticoagulation. Patient seen and examined at the bedside. He denies fevers at home. He was given Vancomycin and Zosyn by admitting hospitalist team but there does not appear to be a role for Vancomycin as MRSA swab negative. His procalcitonin negative and there the Zosyn can also be stopped as well. Patient breathing on room air. He reports that when he takes deep breaths he does feel some discomfort from left lower lung ellison. Patient will be given incentive spirometer to prevent atelectasis and prn pain medications. Patient currently on IV heparin. He was explained different anticoagulation options and understands that hospitalist is trying to reach his oncologist to determine which discharge systemic anticoagulation will be appropriate since patient also following [facility] in [place] for planned tumor removal -echocardiogram on 05/02/2020 60 to 65% ejection fraction, with no wall motion abnormality, borderline pulmonary hypertension with PASP 36 mmHg -updates: Hospitalist was able to reach Dr. Almonte by telephone and he recommend transition from IV heparin to Eliquis. Patient's preference is also to continue respiratory antibiotics as outpatient in case there is any concern for pneumonia even though suspicion of pneumonia is unlikely patient asked to avoid NSAID medications for pain while on Eliquis as the combination can increase bleeding risks discharge medications sent electronically to [facility] [address] [place] [place] [address] of Augmentin twice a day and Doxycycline twice a day for 7 days of acetaminophen 325 mg every 6 hours as needed for pain or fever of Eliquis (Apixaban) as 10 mg twice a day for first 7 days, then 5 mg twice a d ay subsequently, refills for 5 mg twice a day dosing. Patient to be on Apixaban for minimal 3 months with decision on further duration by primary acre and oncology doctors, hypercoagulable workup as per outpatient clinics scheduled appointments 05/05/2020 5:00 PM Provider Yolanda Jorgensen MD Department Internal Medicine [facility] 05/08/2020 4:20 PM Provider Yolanda Jorgensen MD Department Internal Medicine [facility] 06/11/2020 7:45 AM Provider PET Department Radiology [address] 06/19/2020 9:30 AM Provider Pietro Almonte MD Department Hematology/Oncology [facility] (3) Esophageal cancer: -s/p neoadjuvant chemo and XRT therapy with weekly carboplatin and taxol -his outpatient oncologist Dr. Almonte - patient also following [facility] in [place] for planned tumor removal (4) Radiation esophagitis: History of Radiation esophagitis -on PPI, carafate (5) Hypokalemia: Hypokalemia (mild, on admission) -mildly low serum potassium of 3.4 on admission and was given potassium supplements -serum potassium 3.6 on 05/02/2020 and serum potassium at goal (6) DVT prophylaxis: -transition from IV heparin to Eliquis Total Time Total Time Spent Total Time Spent (In Minutes): 40 minutes Total Time Includes: Examination of the Patient, Discharge Planning, Medication Reconciliation and Communication With Other Providers Discharge Plan Discharge Items Patient Disposition: Home - Self-Care Reason For Visit: PULMONARY EMBOLISM Discharge Diagnosis: Pulmonary embolism on left Pulmonary infarct Esophageal Cancer (adenocarcinoma involving the lower 3rd of esophagus) as per notes of oncologist Dr. Almonte History of Radiation esophagitis Hypokalemia (mild, on admission) Condition on Discharge: Good Activity: Resume your previous activity Non-emergency contact: Primary Care Provider and Oncologist Call non-emergency contact if: you have any medication questions Follow-up/Referrals: Yolanda Fernandez MD [Primary Care Provider] - Diet: Regular Diet Texture: Dental soft (bite-sized) Addtl Attending Provider Instructions: discharge medications sent electronically to [address] [id number] of Augmentin twice a day and Doxycycline twice a day for 7 days of acetaminophen 325 mg every 6 hours as needed for pain or fever of Eliquis (Apixaban) as 10 mg twice a day for first 7 days, then 5 mg twice a d ay subsequently, refills for 5 mg twice a day dosing. Patient to be on Apixaban for minimal 3 months with decision on further duration by primary care and oncology doctors, hypercoagulable workup as per outpatient clinics patient asked to avoid NSAID medications for pain while on Eliquis as the combination can increase bleeding risks scheduled appointments 05/05/2020 5:00 PM Provider Yolanda Jorgensen MD Department Internal Medicine [facility] 05/08/2020 4:20 PM Provider Yolanda Jorgensen MD Department Internal Medicine [facility] 06/11/2020 7:45 AM Provider PET Department Radiology [address] 06/19/2020 9:30 AM Provider Pietro Almonte MD Department Hematology/Oncology [facility] [employer] Provider Instructions: patient will be given CD of CTA 05/01/2020 imaging on discharge "1. Extensive left-sided pulmonary emboli. 2. Left lower lobe consolidative and groundglass airspace opacities. This favors a pulmonary infarct. There are also patchy airspace opacities within the base of the right lower lobe posteriorly. This could represent an additional pulmonary infarct, pneumonia, or atelectasis. 3. Diffuse esophageal wall thickening most pronounced within the distal esophagus. This is similar to the prior study and may represent post post radiation changes or neoplastic change." echocardiogram on 05/02/2020 60 to 65% ejection fraction, with no wall motion abnormality, borderline pulmonary hypertension with PASP 36 mmHg Medication Instructions: Your condition is typically treated with an anticoagulant. Anticoagulants will thin your blood to help prevent new clots. * You should take her medication exactly as directed. * Never skip a dose. * Never take a double dose. If you miss a dose, take it as soon as you remember. Call your Primary Care doctor if you experience any of the following: * Swelling or Pain in your leg * Sudden, continuous pain deep in a muscle * Pain that worsens when you are active or when you stand still for a long time * Chest Pain * Sudden Shortness of Breath * Rapid or pounding heart beat * Fainting * Dizziness * Cough with blood or bloody sputum * Sweating more than normal * Bruises * Heavy or uncontrolled bleeding * Blood in your urine, stool or vomit * Black or tarry stools Caring for Your Self at Home: * Avoid sitting, standing or lying down for long periods without moving your legs and feet * When traveling by car, stop to get out and move around at least once every 3 hours * On long airplane, train or bus rides, get up and move around when possible * If you can't get up, wiggle your toes and tighten your calves to keep your blood moving Follow Up: It is important for you to keep your follow up appointments with your medical provider. Pending Studies at Discharge: No Stand-Alone Forms: My [facility] [employer], Smoking Cessation Medications and DC Order Prescriptions: New acetaminophen 325 mg Tablet 325 mg PO Q6H PRN (Reason: fever or pain) 10 Days Qty: 40 RF: 0 doxycycline hyclate 100 mg Capsule 100 mg PO BID 7 Days Qty: 14 RF: 0 amoxicillin-pot clavulanate [Augmentin] 875-125 mg Tablet 1 tab PO BIDM 7 Days Qty: 14 RF: 0 Eliquis 5 mg (74 tabs) tablets,dose pack 5 mg PO UD 30 Days Qty: 30 RF: 2 Continued pantoprazole [Protonix] 20 mg tablet,delayed release (DR/EC) 20 mg PO BID RF: 0 CBD Gummy 1 cap PO HS PRN (Reason: sleep) RF: 0 sucralfate [Carafate] 1 gram Tablet 1 g PO BID RF: 0 Discharge Orders: Discharge Order (Routine); Ordered 05/02/20 Ordered By: Pawel Hoyt Admission Data Admit Date/Time: 05/01/20 15:55 Attending Provider: Pawel Hoyt Admit Provider: Ramirez Dean Primary Care Provider: Yolanda Fernandez Other Providers: Ramirez Dean
[2020-05-02 16:10] VITALS: BP 107/69; PULSE 91; TEMP 98.8; O2SAT 96
[2020-05-02] MEDS ORDERED: AMOXICILLIN/CLAVULANATE 875 MG TAB PO SCH (17:00)
[2020-05-02] MEDS ORDERED: STOP HEPARIN DRIP ORDER ONE (18:00)
[2020-05-02] MEDS ORDERED: APIXABAN 5 MG TABLET PO ONE (18:00)
[2020-05-02] MEDS ORDERED: APIXABAN 5 MG TABLET PO SCH (19:00)
[2020-05-02] MEDS ORDERED: DOXYCYCLINE HYCLATE 100 MG CAP PO SCH (19:00)
[2020-05-02] MEDS ORDERED: PANTOprazole 40 MG TAB PO SCH (21:00)
== END 2020-05-02 18:33 | disposition home or self-care (01) | DRG 176 ==
LOC: ED 11:43 → SUATTDRO 15:55 → 2S 15:55